=== PATIENT | female | born 1955 | race Two or more races ===

== ENCOUNTER 2022-05-04 04:41 | Day surgery (SDC) | payer OTHER ==
[~2022-05-04] VITALS: Ht 152.4 cm; Wt 77.1 kg
[~2022-05-04 04:41] MED LIST: ACTOS30 MG PO; ARAVA10 MG PO; LIPITOR20 MG PO; LOSARTAN-HCTZ1 EAC2 PO; METFORMIN HCL1000 M2 PO; NORVASC5 MG PO; STELARA90 MG/1 ML
== END 2022-05-04 15:25 | disposition home or self-care (01) ==
LOC: CIR.AMB 04:41
PROVIDERS: ATTEND Colon & Rectal Surgery
DX: K64.8 Other hemorrhoids (principal); K64.4 Residual hemorrhoidal skin tags; K92.2 Gastrointestinal hemorrhage, unspecified; R15.9 Full incontinence of feces; K59.00 Constipation, unspecified; I10 Essential (primary) hypertension; E11.9 Type 2 diabetes mellitus without complications; Z20.822 Contact with and (suspected) exposure to COVID-19